=== PATIENT | male | born 1955 | race Caucasian/White ===

== ENCOUNTER 2025-01-19 11:53 | Outpatient (CLI) | payer MEDICARE, OTHER, SELFPAY ==
[2025-01-19] VITALS (13 sets, daily range): BP systolic 117–177; BP diastolic 66–81; PULSE 60–71; RESP 17–18; TEMP 36.7; O2SAT 98–100
--- NOTE | 2025-01-19 | PATH_ITS ---
[facility] Accession Number: [id number] No. of containers..02 Tissue 04 Unknown Storage/container code(s) . 01 Material submitted: . PART A: bone marrow - BONE MARROW CORE PELVIS PART B: bone marrow - BONE MARROW ASPIRATION . 01 Clinical history: . PLEASE SEE ATTACHED . 01 Diagnosis: BONE MARROW BIOPSY, ASPIRATE CLOT, ASPIRATE SMEAR, AND TOUCH PREP: - Hypercellular bone marrow for age (90%), with trilineage hyperplasia, megakaryocyte atypia with loose clustering, negative for increased blasts. - Moderate reticulin fibrosis (MF2 of 3). Negative for collagen fibrosis. - Storage iron absent. - Chromosome analysis and CML/MPN FISH panel pending. - Myeloid NGS study pending. - See comment and microscopic description. - COMMENT: Concurrent flow cytometry analysis (specimen ID: [id number]) is negative for increased or aberrant blasts, negative for monotypic B-cells or aberrant T-cells. - The overall bone marrow findings support a diagnosis of chronic phase myeloproliferative neoplasm. Chromosome analysis CML/MPN FISH panel and myeloid NGS results will be reported in an addendum with an updated diagnosis. Follow up and clinical correlation is recommended. [facility] 01/23/2025 1259 Local . 01 Electronically signed: . Hansel Ma MD, Pathologist NPI- [id number] . 01 Gross description: . A. Received in formalin with two identifiers and bone aspiration pelvis is a smith to brown needle core of bone, 1.2 cm in length by 0.3 cm in diameter. Submitted intact in A1 following decalcification in Immunocal. B. Received in formalin with two identifiers and bone aspiration, are small smith-brown soft tissue fragments aggregating to 0.4 x 0.3 x 0.1 cm. Filtered and submitted entirely in B1. ([id number]) /MRV 01/20/2025 1330 Local . 01 Microscopic: . 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 Recent labs with erythropoietin level of 1.2 (L) and Hematocrit: 52.7 (H), 11/28/2024. - MOST RECENT AVAILABLE CBC (01/19/2025): WBC: 11.0 K/uL HCT: 43.7% PLT: 441 K/uL. - ASPIRATE SMEAR / TOUCH PREP EVALUATION AND MANUAL DIFFERENTIAL (%): Aspirate smears and touch prep slides are adequate for evaluation. Promyelocytes (2-4): 4 - Myelocytes (8-16): 30 - Metamyelocytes (10-25): 17 - Bands / PMN's (16-32): 18 - Eosinophils (1-4): 0 - Basophils (0-2): 0 - Monocytes (0-2): 0; Erythroids (16-32): 30; Blasts (0-2): 0; Lymphocytes (5-15): 1; Plasma cells (0-3): 0; M/E ratio (1.5-3.5): 2.3. - Erythropoiesis: Normal maturation and predominantly normal morphology. Granulopoiesis: Normal maturation and morphology. Megakaryopoiesis: Increased with atypia characterized by anisocytosis, hyperlobated, bulbous, and large forms with occasional hyperchromatic nuclei. Blasts: No discretely increased population present. Plasma cells: Near absent. Iron stain: Storage iron is absent. - CORE BIOPSY: Adequate core size and marrow space with cellularity of 90%. To better characterize this process, immunohistochemical stains were indicated and performed on the core biopsy and clot sections with adequate controls (see below). Blasts: <1% blasts, supported by CD34 immunostain. Erythroid precursors: Increased with normal distribution. Myeloid cells: Increased with normal distribution. Megakaryocytes: Increased with loose clustering, with anisocytosis, subset of large, bulbous, and hyperlobated forms, with occasional hyperchromatic nuclei, supported by FactorVIII immunostain. The atypia favors polycythemia vera. Lymphocytes: Negative for discrete lymphoid aggregates. Reticulin and trichrome stains: Moderate reticulin fibrosis (MF2 of 3). Negative for collagen fibrosis. - ASPIRATE CLOT: Marrow particles are present with a cellularity of 90% with similar cellular findings to that of the core biopsy. Erythroid precursors: Increased with normal maturation and distribution, supported by CD71 and E-Cadherin immunostains. Myeloid cells: Increased with normal distribution, supported by CD15 immunostain. Normal M:E ratio of 2.5:1. CD117 highlights scattered mast cells, <1% of cellularity. Megakaryocytes: Increased without tight clusters, supported by FactorVIII immunostain, and features similar to that of the core biopsy. Blasts: <1% blasts, supported by CD34 immunostain. Lymphocytes: Negative for discrete lymphoid aggregates. Iron stain: Storage iron absent. - As part of ongoing quality assurance manager, select slides were reviewed by Dr. Yadira Tyson who agrees with the interpretation. Technical Note: The immunohistochemical stains reported were performed at [facility] ([address] [place] [address] [address], [facility] [address]). This test was developed, and the performance characteristics were validated by [facility]. It has not been cleared or approved by the Food and Drug Administration. . 01 Pathologist provided ICD-10: D75.1 . 01 CPT . 028866, 627984, 573227, 817923, 088409, 338344, 532584, G17561, C75460 Specimen Comment: A courtesy copy of this report has been sent to [phone] Performed at: [address] [place] [address] [address] [facility], [place], [place] [id number] MD Rich Sprague MD Phone: [phone]
--- NOTE | 2025-01-19 11:58 | DI.CT.S_ITS ---
PROCEDURE: CT BIOPSY BONE DEEP Sedation analgesia for 30 minutes. INDICATIONS: ERYTHROCYTOSIS TECHNIQUE: The indications, alternatives, benefits, risks, and possible complications of the procedure were communicated to the patient. Informed written consent from the patient was obtained and placed in the chart. Continuous EKG and hemodynamic monitoring was started by trained personnel. The patient was brought to the CT suite and hockey scout spiral CT imaging was performed with localization grid. The appropriate site for percutaneous access to the biopsy target was marked, was prepped and draped sterilely, and was infused with local anaesthesia. Under CT guidance, a core biopsy trocar and needle set was advanced to the biopsy target, and specimen(s) were obtained. The trocar and needle were then removed, and the patient was sent for post-procedure monitoring. COMPARISON: None. FINDINGS: Biopsy site: Right iliac crest Needle: 11 gauge biopsy needle with introducer trocar. Number of passes: 2 Medications: 1% lidocaine for local anaesthesia. IV Fentanyl and Versed for conscious sedation for 30 minutes (see nursing record). Complications: None. IMPRESSION: Successful CT-guided biopsy of right iliac crest bone marrow. Dictated by: Marquis Lee M.D. on 01/19/2025 at 16:25 Approved by: Marquis Lee M.D. on 01/19/2025 at 16:27
[2025-01-19 12:57] LABS: Hematocrit 43.7 % (41-53); Hemoglobin 13.6 g/dL (13.5-17.5); Mean Corpuscular HGB Conc 31.2 % (30-36); Mean Corpuscular Hemoglobin 18.9 PG (26-34); Mean Corpuscular Volume 60.4 fL (80-100); Platelet Count 441 X10^3/uL (150-400); Red Cell Distribution Width 18.9 % (11.6-14.8)
[2025-01-19 12:58] LABS: Red Blood Cell Count 7.23 X10^6/uL (4.5-5.9)
[2025-01-19 13:05] LABS: INR 1.1 (0.9-1.3)
[2025-01-19] MEDS: fentaNYL 100 MCG/2 ML INJ 50 MCG IV (13:45)
[2025-01-19] MEDS: MIDAZOLAM 2 MG/2 ML VIAL 1 MG IV (13:45)
[2025-01-19] MEDS: LIDOCAINE 1% 20 ML INJ (13:54)
== END 2025-01-19 15:40 | disposition hospice, home (50) ==
PROVIDERS: Referring Provider Internal Medicine Medical Oncology; Visit Provider Internal Medicine Medical Oncology
DX: D75.1 Secondary polycythemia (principal); Z79.82 Long term (current) use of aspirin
CPT/HCPCS: 20225; 77012; 85027; 85610; 99152; 99153; J2250; J3010